=== PATIENT | female | born 1990 | race Caucasian/White ===

== ENCOUNTER 2016-12-02 04:51 | Emergency (ER) | payer OTHER ==
[2016-12-02] MEDS ORDERED: PHENAZOPYRIDINE 100 MG TAB As Ordered ONE (05:58)
--- NOTE | 2016-12-02 06:14 | EDDOCDS ---
Physician Documentation [facility] Name: Tiffanie Walton Age: 26 yrs Sex: Female : 1990 Arrival Date: 12/02/2016 Time: 04:51 Bed 12 Private MD: Calista Parikh E Disposition: 12/02/16 05:58 Discharged to Home/Self Care. Impression: Dysuria. - Condition is Stable. - Discharge Instructions: Dysuria. - Prescriptions for Pyridium 200 mg Oral Tablet - take 1 tablet by ORAL route every 8 hours for 3 days; 9 tablet. - Medication Reconciliation, Local Pharmacy Hours form. - Follow up: JANE Gibbons; When: Call to arrange an appointment; Reason: Continuance of care. - Problem is an ongoing problem. - Symptoms are unchanged. Historical: - Allergies: no known allergies; - PMHx: none; - PSHx: none; - Social history: Smoking status: Patient states was never smoker of tobacco. Race: White, Ethnicity: Not or No barriers to communication noted, Preferred Language: Cuban. - Family history: Not pertinent. - : The pt / caregiver states he / she is not on anticoagulants. Home medication list is obtained from the patient. - Exposure Risk Screening:: None identified. 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 3 in. (160.02 cm); Pain 5/10; 06:12 BP 132 / 89; Pulse 85; Resp 18; Temp 98.0(O); Pulse Ox 99% on R/A; Pain 2/10; kas2 05:01 Body Mass Index 22.14 (56.70 kg, 160.02 cm) cf2 MDM: 05:06 UCG by Nursing ordered. js15 05:07 UA Ordered. EDMS 05:07 Urine Culture Ordered. EDMS 05:36 UA Reviewed. mm11 05:52 Phenazopyridine 200 mg PO once ordered. mm11 Point of Care Testing: Urine : 05:24 hCG Reading: Negative; Control Reading: Positive; js15 Ranges: Administered Medications: 06:13 Drug: Phenazopyridine 200 mg [phenazopyridine 100 mg tablet (2 tabs)] Route: PO; kas2 Signatures: Dispatcher [employer] Brett Doran DO DO mm11 Kyra ResendizRN RN js15 Afshan Zaman RN RN kas2 Divine CurryRN RN cf2 MTDD
--- NOTE | 2016-12-02 06:14 | EDDOCDS ---
Nurse's Notes [facility] Name: Tiffanie Walton Age: 26 yrs Sex: Female : 1990 Arrival Date: 12/02/2016 Time: 04:51 Bed 12 Private MD: Calista Parikh E Diagnosis: Dysuria Presentation: 12/02 05:00 Presenting complaint: Patient states: "bladder pain after I woke up and peed this cf2 morning". Risk factors: the patient reports no vaginal bleeding. Adult Sepsis Screening: The patient does not have new or worsening altered mentation. Patient's respiratory rate is less than 22. Systolic blood pressure is greater than 100. Patient has a qSOFA score of 0- Negative Sepsis Screen. Suicide/Homicide risk assessment- the patient denies having any suicidal and/or homicidal ideations and does not present with any other emotional, behavioral or mental health complaints. Status: The patient is a dependent. Transition of care: patient was not received from another setting of care. 05:00 Acuity: DONNA Level 4 cf2 05:00 Method Of Arrival: Walkin/Carried/Asstd cf2 Triage Assessment: 05:01 General: Appears in no apparent distress, Behavior is anxious. Pain: Location: pelvis. cf2 Pt Declines HIV testing. : Reports burning with urination cramping. 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 Race: White, Ethnicity: Not or No barriers to communication noted, Preferred Language: Thai. - Family history: Not pertinent. - : The pt / caregiver states he / she is not on anticoagulants. Home medication list is obtained from the patient. - Exposure Risk Screening:: None identified. Screenin:16 Screening information is obtained from the patient. Fall risk: No risks identified. kas2 Assistance ADL's: requires no assistance with activities of daily living. Assistance ADL's: requires no assistance with activities of daily living. Abuse/DV Screen: The patient / caregiver reports he/she is: not in a situation that causes fear, pain or injury. Nutritional screening: No deficits noted. Advance Directives: Currently, there is no health care proxy. There is no active DNR order. There is no living will. There is no Power of Assistant Producer. home support is adequate. Assessment: 05:15 General: Appears in no apparent distress, uncomfortable, well nourished, well groomed, kas2 Behavior is appropriate for age, cooperative. Pain: Location: pelvis Pain currently is 8 out of 10 on a pain scale. Neurological: Level of Consciousness is awake, alert, Oriented to person, place, time. Cardiovascular: Capillary refill < 3 seconds Heart tones S1 S2 present Rhythm is regular. Respiratory: Airway is patent Respiratory effort is even, unlabored, Respiratory pattern is regular, symmetrical, Breath sounds are clear bilaterally. GI: Abdomen is flat, non- distended Bowel sounds present X 4 quads. Abd is soft X 4 quads Abd is tender to palpation X 4 quads. : Reports burning with urination pain urgency urinary frequency. Derm: Skin is intact, Skin is dry, Skin is pink, warm & dry. Skin temperature is warm. Vital Signs: 05:01 BP 137 / 91; Pulse 98; Resp 20; Temp 97.5; Pulse Ox 100% ; Weight 56.7 kg; Height 5 ft. cf2 3 in. (160.02 cm); Pain 5/10; 06:12 BP 132 / 89; Pulse 85; Resp 18; Temp 98.0(O); Pulse Ox 99% on R/A; Pain 2/10; kas2 05:01 Body Mass Index 22.14 (56.70 kg, 160.02 cm) cf2 ED Course: 04:53 Patient visited by Mike López, Reg. pm4 04:53 Calista Parikh is Private Physician. pm4 04:53 Patient moved to Waiting pm4 05:01 Triage Initiated cf2 05:05 Afshan Zaman,RN is Primary Nurse. sls1 05:05 Patient moved to 12 sls1 05:17 Patient visited by Afshan Zaman RN. kas2 05:20 Patient visited by Afshan Zaman RN. kas2 05:20 Urine Culture Sent. kas2 05:20 UA Sent. kas2 05:20 Urine collected. Clean catch specimen. Urine specimen sent to lab. kas2 05:25 Patient visited by Afshan Zaman RN. kas2 05:36 Brett Lynn DO is Attending Physician. mm11 05:36 Patient visited by Brett Lynn DO. mm11 05:52 Patient visited by Brett Lynn DO. mm11 05:58 Edwige Daryn is Referral Physician. mm11 06:13 The patient / caregiver is instructed regarding the plan of care and ED course. kas2 06:13 No IV's were initiated during this patient's visit. No procedures done that require kas2 assistance. Administered Medications: 06:13 Drug: Phenazopyridine 200 mg [phenazopyridine 100 mg tablet (2 tabs)] Route: PO; kas2 Point of Care Testing: Urine : 05:24 hCG Reading: Negative; Control Reading: Positive; js15 Ranges: Order Results: Lab Order: UA; SPEC'M 12/02/16 05:18 Test: APPEARANCE, URINE; Value: CLEAR; Range: CLEAR; Status: F Test: COLOR, URINE; Value: YELLOW; Range: YELLOW; Status: F Test: PH,URINE; Value: 6.0; Range: 5.0-9.0; Units: UNITS; Status: F Test: SPECIFIC GRAVITY URINE AUTO; Value: 1.021; Range: 1.002-1.035; Status: F Test: PROTEIN, URINE AUTO; Value: 1+; Range: NEGATIVE; Abnormal: Above high normal; Units: mg/dL; Status: F Test: GLUCOSE, URINE (UA) AUTO; Value: NEGATIVE; Range: NEGATIVE; Units: mg/dL; Status: F Test: KETONE, URINE AUTO; Value: NEGATIVE; Range: NEGATIVE; Units: mg/dL; Status: F Test: UROBILINOGEN, URINE AUTO; Value: 0.2; Range: 0.0-2.0; Units: mg/dL; Status: F Test: BILIRUBIN, URINE AUTO; Value: NEGATIVE; Range: NEGATIVE; Status: F Test: NITRITE, URINE AUTO; Value: NEGATIVE; Range: NEGATIVE; Status: F Test: LEUKOCYTE ESTERASE, URINE AUTO; Value: NEGATIVE; Range: NEGATIVE; Status: F Test: BLOOD, URINE BLOOD; Value: NEGATIVE; Range: NEGATIVE; Status: F Test: WBC, URINE AUTO; Value: 1; Range: 0-3; Units: /HPF; Status: F Test: RBC, URINE AUTO; Value: 2; Range: 0-3; Units: /HPF; Status: F Test: BACTERIA, URINE AUTO; Value: 1+; Range: NEGATIVE; Abnormal: Above high normal; Status: F Test: SQUAMOUS EPITHELIAL CELL UR AU; Value: 1; Range: 0-6; Units: /HPF; Status: F Test: MUCUS, URINE; Value: SMALL; Range: NEGATIVE; Status: F Test: HYALINE CAST, URINE AUTO; Value: 0; Range: 0-1; Units: /LPF; Status: F Outcome: 05:58 Discharge ordered by Provider. mm11 06:12 Discharge Assessment: patient administered narcotics - no. The following High Risk [facility] Discharge criteria are identified: None. Discharged to home ambulatory. Condition: good Condition: stable Condition: improved. No special radiology studies were completed. Property :Personal belongings accompany Pt. 06:13 Patient left the ED. [facility] Signatures: Brett Lynn, DO mm11 Nicolette Colby RN RN sls1 Kyra Resendiz,RN RN js15 Afshan Zaman RN RN kas2 Divine Curry RN RN cf2 Mike López, Reg Reg pm4 MTDD
--- NOTE | 2016-12-04 07:14 | EDDOCDS ---
Physician Documentation [facility] Name: Tiffanie Walton Age: 26 yrs Sex: Female : 1990 Arrival Date: 12/02/2016 Time: 04:51 Bed 12 Private MD: Calista Parikh E Disposition: 12/02/16 05:58 Discharged to Home/Self Care. Impression: Dysuria. - Condition is Stable. - Discharge Instructions: Dysuria. - Prescriptions for Pyridium 200 mg Oral Tablet - take 1 tablet by ORAL route every 8 hours for 3 days; 9 tablet. - Medication Reconciliation, Local Pharmacy Hours form. - Follow up: JANE Gibbons; When: Call to arrange an appointment; Reason: Continuance of care. - Problem is an ongoing problem. - Symptoms are unchanged. Historical: - Allergies: no known allergies; - PMHx: none; - PSHx: none; - Social history: Smoking status: Patient states was never smoker of tobacco. Race: White, Ethnicity: Not or No barriers to communication noted, Preferred Language: Citizen Of [place]. - Family history: Not pertinent. - : The pt / caregiver states he / she is not on anticoagulants. Home medication list is obtained from the patient. - Exposure Risk Screening:: None identified. 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 3 in. (160.02 cm); Pain 5/10; 06:12 BP 132 / 89; Pulse 85; Resp 18; Temp 98.0(O); Pulse Ox 99% on R/A; Pain 2/10; kas2 05:01 Body Mass Index 22.14 (56.70 kg, 160.02 cm) cf2 MDM: 05:06 UCG by Nursing ordered. js15 05:07 UA Ordered. EDMS 05:07 Urine Culture Ordered. EDMS 05:36 UA Reviewed. mm11 05:52 Phenazopyridine 200 mg PO once ordered. mm11 06:16 Financial registration complete. hs2 06:20 [facility] Payment Agreement was scanned into [employer] and attached to record. hs2 12/03 10:01 T-Sheet-- Draft Copy was scanned into [employer] and attached to record. Point of Care Testing: Urine : 12/02 05:24 hCG Reading: Negative; Control Reading: Positive; js15 Ranges: Administered Medications: 06:13 Drug: Phenazopyridine 200 mg [phenazopyridine 100 mg tablet (2 tabs)] Route: PO; kas2 Signatures: Dispatcher MedHost EDMS Alannah Jeffery, Reg Reg gb Brett Lynn, DO mm11 Kyra ResendizRN RN js15 Belem Licea, Reg Reg hs2 Afshan Zaman RN RN kas2 Divine Curry,RN RN cf2 The chart was reviewed and I authenticate all verbal orders and agree with the evaluation and treatment provided.Attachments: 06:20 [facility] Payment Agreement hs2 12/03 10:01 T-Sheet-- Draft Copy gb Chart Complete MTDD
--- NOTE | 2016-12-04 07:14 | EDDOCDS ---
Physician Documentation [facility] Name: Tiffanie Walton Age: 26 yrs Sex: Female : 1990 Arrival Date: 12/02/2016 Time: 04:51 Bed 12 Private MD: Calista Parikh E Disposition: 12/02/16 05:58 Discharged to Home/Self Care. Impression: Dysuria. - Condition is Stable. - Discharge Instructions: Dysuria. - Prescriptions for Pyridium 200 mg Oral Tablet - take 1 tablet by ORAL route every 8 hours for 3 days; 9 tablet. - Medication Reconciliation, Local Pharmacy Hours form. - Follow up: JANE Gibbons; When: Call to arrange an appointment; Reason: Continuance of care. - Problem is an ongoing problem. - Symptoms are unchanged. Historical: - Allergies: no known allergies; - PMHx: none; - PSHx: none; - Social history: Smoking status: Patient states was never smoker of tobacco. Race: White, Ethnicity: Not or No barriers to communication noted, Preferred Language: Djiboutian. - Family history: Not pertinent. - : The pt / caregiver states he / she is not on anticoagulants. Home medication list is obtained from the patient. - Exposure Risk Screening:: None identified. 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 3 in. (160.02 cm); Pain 5/10; 06:12 BP 132 / 89; Pulse 85; Resp 18; Temp 98.0(O); Pulse Ox 99% on R/A; Pain 2/10; kas2 05:01 Body Mass Index 22.14 (56.70 kg, 160.02 cm) cf2 MDM: 05:06 UCG by Nursing ordered. js15 05:07 UA Ordered. EDMS 05:07 Urine Culture Ordered. EDMS 05:36 UA Reviewed. mm11 05:52 Phenazopyridine 200 mg PO once ordered. mm11 06:16 Financial registration complete. hs2 06:20 [facility] Payment Agreement was scanned into [employer] and attached to record. hs2 12/03 10:01 T-Sheet-- Draft Copy was scanned into [employer] and attached to record. Point of Care Testing: Urine : 12/02 05:24 hCG Reading: Negative; Control Reading: Positive; js15 Ranges: Administered Medications: 06:13 Drug: Phenazopyridine 200 mg [phenazopyridine 100 mg tablet (2 tabs)] Route: PO; kas2 Signatures: Dispatcher [employer] EDMS Alannah Jeffery, Reg Reg gb Brett Lynn, DO mm11 Kyra ResendizRN RN js15 Belem Licea, Reg Reg hs2 Afshan Zaman RN RN kas2 Divine Curry,RN RN cf2 The chart was reviewed and I authenticate all verbal orders and agree with the evaluation and treatment provided.Attachments: 06:20 [facility] Payment Agreement hs2 12/03 10:01 T-Sheet-- Draft Copy gb Chart Complete MTDD
--- NOTE | 2016-12-04 07:14 | EDDOCDS ---
Nurse's Notes [facility] Name: Tiffanie Walton Age: 26 yrs Sex: Female : 1990 Arrival Date: 12/02/2016 Time: 04:51 Bed 12 Private MD: Calista Parikh E Diagnosis: Dysuria Presentation: 12/02 05:00 Presenting complaint: Patient states: "bladder pain after I woke up and peed this cf2 morning". Risk factors: the patient reports no vaginal bleeding. Adult Sepsis Screening: The patient does not have new or worsening altered mentation. Patient's respiratory rate is less than 22. Systolic blood pressure is greater than 100. Patient has a qSOFA score of 0- Negative Sepsis Screen. Suicide/Homicide risk assessment- the patient denies having any suicidal and/or homicidal ideations and does not present with any other emotional, behavioral or mental health complaints. Status: The patient is a dependent. Transition of care: patient was not received from another setting of care. 05:00 Acuity: DONNA Level 4 cf2 05:00 Method Of Arrival: Walkin/Carried/Asstd cf2 Triage Assessment: 05:01 General: Appears in no apparent distress, Behavior is anxious. Pain: Location: pelvis. cf2 Pt Declines HIV testing. : Reports burning with urination cramping. 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 Race: White, Ethnicity: Not or No barriers to communication noted, Preferred Language: Swedish. - Family history: Not pertinent. - : The pt / caregiver states he / she is not on anticoagulants. Home medication list is obtained from the patient. - Exposure Risk Screening:: None identified. Screenin:16 Screening information is obtained from the patient. Fall risk: No risks identified. kas2 Assistance ADL's: requires no assistance with activities of daily living. Assistance ADL's: requires no assistance with activities of daily living. Abuse/DV Screen: The patient / caregiver reports he/she is: not in a situation that causes fear, pain or injury. Nutritional screening: No deficits noted. Advance Directives: Currently, there is no health care proxy. There is no active DNR order. There is no living will. There is no Power of Door Clamp Operator. home support is adequate. Assessment: 05:15 General: Appears in no apparent distress, uncomfortable, well nourished, well groomed, kas2 Behavior is appropriate for age, cooperative. Pain: Location: pelvis Pain currently is 8 out of 10 on a pain scale. Neurological: Level of Consciousness is awake, alert, Oriented to person, place, time. Cardiovascular: Capillary refill < 3 seconds Heart tones S1 S2 present Rhythm is regular. Respiratory: Airway is patent Respiratory effort is even, unlabored, Respiratory pattern is regular, symmetrical, Breath sounds are clear bilaterally. GI: Abdomen is flat, non- distended Bowel sounds present X 4 quads. Abd is soft X 4 quads Abd is tender to palpation X 4 quads. : Reports burning with urination pain urgency urinary frequency. Derm: Skin is intact, Skin is dry, Skin is pink, warm & dry. Skin temperature is warm. Vital Signs: 05:01 BP 137 / 91; Pulse 98; Resp 20; Temp 97.5; Pulse Ox 100% ; Weight 56.7 kg; Height 5 ft. cf2 3 in. (160.02 cm); Pain 5/10; 06:12 BP 132 / 89; Pulse 85; Resp 18; Temp 98.0(O); Pulse Ox 99% on R/A; Pain 2/10; kas2 05:01 Body Mass Index 22.14 (56.70 kg, 160.02 cm) cf2 ED Course: 04:53 Patient visited by Mike López, Reg. pm4 04:53 Calista Parikh is Private Physician. pm4 04:53 Patient moved to Waiting pm4 05:01 Triage Initiated cf2 05:05 Afshan Zaman,RN is Primary Nurse. sls1 05:05 Patient moved to 12 sls1 05:17 Patient visited by Afshan Zaman RN. kas2 05:20 Patient visited by Afshan Zaman RN. kas2 05:20 Urine Culture Sent. kas2 05:20 UA Sent. kas2 05:20 Urine collected. Clean catch specimen. Urine specimen sent to lab. kas2 05:25 Patient visited by Afshan Zaman RN. kas2 05:36 Brett Lynn DO is Attending Physician. mm11 05:36 Patient visited by Brett Lynn DO. mm11 05:52 Patient visited by Brett Lynn DO. mm11 05:58 Edwige Daryn is Referral Physician. mm11 06:13 The patient / caregiver is instructed regarding the plan of care and ED course. kas2 06:13 No IV's were initiated during this patient's visit. No procedures done that require kas2 assistance. 06:20 [facility] Payment Agreement was scanned into [employer] and attached to record. hs2 12/03 10:01 T-Sheet-- Draft Copy was scanned into [employer] and attached to record. gb Administered Medications: 12/02 06:13 Drug: Phenazopyridine 200 mg [phenazopyridine 100 mg tablet (2 tabs)] Route: PO; kas2 Point of Care Testing: Urine : 05:24 hCG Reading: Negative; Control Reading: Positive; js15 Ranges: Order Results: Lab Order: UA; SPEC'M 12/02/16 05:18 Test: APPEARANCE, URINE; Value: CLEAR; Range: CLEAR; Status: F Test: COLOR, URINE; Value: YELLOW; Range: YELLOW; Status: F Test: PH,URINE; Value: 6.0; Range: 5.0-9.0; Units: UNITS; Status: F Test: SPECIFIC GRAVITY URINE AUTO; Value: 1.021; Range: 1.002-1.035; Status: F Test: PROTEIN, URINE AUTO; Value: 1+; Range: NEGATIVE; Abnormal: Above high normal; Units: mg/dL; Status: F Test: GLUCOSE, URINE (UA) AUTO; Value: NEGATIVE; Range: NEGATIVE; Units: mg/dL; Status: F Test: KETONE, URINE AUTO; Value: NEGATIVE; Range: NEGATIVE; Units: mg/dL; Status: F Test: UROBILINOGEN, URINE AUTO; Value: 0.2; Range: 0.0-2.0; Units: mg/dL; Status: F Test: BILIRUBIN, URINE AUTO; Value: NEGATIVE; Range: NEGATIVE; Status: F Test: NITRITE, URINE AUTO; Value: NEGATIVE; Range: NEGATIVE; Status: F Test: LEUKOCYTE ESTERASE, URINE AUTO; Value: NEGATIVE; Range: NEGATIVE; Status: F Test: BLOOD, URINE BLOOD; Value: NEGATIVE; Range: NEGATIVE; Status: F Test: WBC, URINE AUTO; Value: 1; Range: 0-3; Units: /HPF; Status: F Test: RBC, URINE AUTO; Value: 2; Range: 0-3; Units: /HPF; Status: F Test: BACTERIA, URINE AUTO; Value: 1+; Range: NEGATIVE; Abnormal: Above high normal; Status: F Test: SQUAMOUS EPITHELIAL CELL UR AU; Value: 1; Range: 0-6; Units: /HPF; Status: F Test: MUCUS, URINE; Value: SMALL; Range: NEGATIVE; Status: F Test: HYALINE CAST, URINE AUTO; Value: 0; Range: 0-1; Units: /LPF; Status: F Lab Order: Urine Culture; SPEC'M 12/02/16 05:18 Test: URINE CULTURE; Value: <EXTERNAL COMMENT eCWMed> FULL REPORT IN LAB NOTES (eCW and Medent).; Status: F Test: URINE CULTURE; Value: URINE CULTURE RESULT NO GROWTH; Status: F Outcome: 05:58 Discharge ordered by Provider. mm11 06:12 Discharge Assessment: patient administered narcotics - no. The following High Risk [facility] Discharge criteria are identified: None. Discharged to home ambulatory. Condition: good Condition: stable Condition: improved. No special radiology studies were completed. Property :Personal belongings accompany Pt. 06:13 Patient left the ED. [facility] Signatures: Alannah Jeffery, Reg Reg gb Brett Lynn, DO mm11 Nicolette Colby RN RN sls1 Kyra Resendiz,RN RN js15 Belem Licea, Reg Reg hs2 Afshan Zaman RN RN kas2 Divine CurryRN RN 2 Mike López, Reg Reg pm4 Chart Complete MTDD
== END 2016-12-02 06:13 | disposition home or self-care (01) ==
LOC: M ED 04:51
DX: R30.0 Dysuria (principal)